=== PATIENT | male | born 1985 | race Caucasian/White ===

== ENCOUNTER 2022-04-19 17:05 | Emergency (ER) | payer OTHER ==
[~2022-04-19] VITALS: Ht 180.3 cm; Wt 81.7 kg
[~2022-04-19 17:05] MED LIST: CANASA1000 MG RC; NORCO 5-325 TA1 EACH PO
[2022-04-19] MEDS ORDERED: VISTARIL25 MG PO (20:49)
--- NOTE | 2022-04-20 21:52 | EKG ---
[facility] [address] [place] [address] Signed Sinus tachycardia Minimal voltage criteria for LVH, may be normal variant ( Sokolow-Navarro ) Nonspecific ST abnormality Abnormal ECG No previous ECGs available Confirmed by Alexandro Christensen MD () on 04/20/2022 9:52:11 PM Electronically Signed By: ALEXANDRO CHRISTENSEN MD 04/20/[id number] PATIENT NAME: WARERN LEPE Electrocardiogram DATE OF : 89 PHYSICIAN: ALEXANDRO CHRISTENSEN MD REPORT #: [id number] REPORT IS CONFIDENTIAL AND NOT TO BE RELEASED WITHOUT AUTHORIZATION
== END 2022-04-19 21:23 | disposition home or self-care (01) ==
LOC: ED 17:05
DX: E86.0 Dehydration (principal); E87.6 Hypokalemia; R00.0 Tachycardia, unspecified
CPT/HCPCS: 36415; 80053; 83735; 84436; 84443; 84484; 85025; 93005; 93010; 96361; 96374; 99284-25; A9270; A9270-GY; J3480; J7030

== ENCOUNTER 2024-01-02 13:02 | Emergency (ER) | payer OTHER ==
[~2024-01-02] VITALS: Ht 180.3 cm; Wt 82.2 kg
[~2024-01-02 13:02] MED LIST changes: +VISTARIL25 MG PO
[2024-01-02] MEDS ORDERED: PROPRANOLOL HCL10 MG PO (13:17)
[2024-01-02 13:23] LABS: BASOPHILS 0.4 % (0-2); HEMATOCRIT 41.1 % (35.0-50.0); HEMOGLOBIN 14.8 g/dL (12.0-18.0); LYMPHOCYTES 37.8 % (24-44); MCH 31.7 (27-36); MCHC 36.1 g/dl (30-36); MCV 87.8 fl (81-99); MONOCYTES 6.4 % (0-12); NEUTROPHILS 54.4 % (39-80); PLATELET COUNT 413 K/uL (140-440); RBC 4.68 M/ul (4.3-5.7); RDW 12.9 (10.5-15.0)
[2024-01-02] MEDS ORDERED: NITROGLYCERIN 0.4 MG SUBL SL PRN (13:30)
[2024-01-02] MEDS ORDERED: METOPROLOL TARTRATE 5 MG/5 ML VIAL IV ONE (13:30)
[2024-01-02 13:50] LABS: ALBUMIN 4.6 g/dL (3.4-5.0); ALBUMIN/GLOBULIN RATIO 1.31 (1.1-2.4); ALKALINE PHOSPHATASE 74 U/L (46-116); ALT (SGPT) 33 U/L (14-59); ANION GAP 17.1 (7-21); AST (SGOT) 19 U/L (15-37); BILIRUBIN, TOTAL 0.4 ng/dL (0.2-1.0); BUN/CREATININE RATIO 13.11 (6.0-28.6); CALCIUM 9.9 mg/dL (8.5-10.1); CARBON DIOXIDE 24 mmol/L (21-32); CHLORIDE 98 mmol/L (98-107); CREATININE, SERUM 1.22 mg/dL (0.70-1.30); GLOMERULAR FILTRATION RATE,EST 78 mL/min (>60); MAGNESIUM 1.7 mg/dL (1.8-2.4); POTASSIUM 3.1 mmol/L (3.5-5.1); PROTEIN, TOTAL 8.1 g/dL (6.4-8.2); UREA NITROGEN 16 mg/dL (7-18)
[2024-01-02 15:11] VITALS: BP 135/98
--- NOTE | 2024-01-03 18:59 | EKG ---
[facility] [address] [facility] [facility] [place], [place] [address] Signed Sinus tachycardia Nonspecific ST abnormality Abnormal ECG When compared with ECG of 19-APR-2022 17:17, No significant change was found Confirmed by Vipin Newsome MD ([id number]) on 01/03/2024 6:59:19 PM Electronically Signed By: VIPIN NEWSOME MD 01/03/241858 PATIENT NAME: WARREN LEPE Electrocardiogram DATE OF : 89 PHYSICIAN: VIPIN NEWSOME MD REPORT #: [id number] REPORT IS CONFIDENTIAL AND NOT TO BE RELEASED WITHOUT AUTHORIZATION
== END 2024-01-02 15:11 | disposition home or self-care (01) ==
LOC: ED 13:02
PROVIDERS: Emergency Medicine
DX: R07.89 Other chest pain (principal); R00.0 Tachycardia, unspecified; Z91.148 Patient's other noncompliance with medication regimen for other reason; Z79.899 Other long term (current) drug therapy
CPT/HCPCS: 36415; 71045; 71260; 80053; 83735; 83880; 84484; 85025; 93005; 93010; 99285-25; Q9967